=== PATIENT | female | born 1980 ===

== ENCOUNTER 2017-09-09 11:02 | Day surgery (SDC) | payer BC ==
[2017-09-03 12:26] VITALS: BMI 25.2
[2017-09-09 11:43] LABS: BASO # 0.01 K/mm3 (0.0-2.0); BASO % 0.2 % (0.0-3.0); EOS % 0.7 % (1.5-5.0); GRAN # 2.04 (1.4-6.5); GRAN % 50.5 % (50.0-68.0); HEMATOCRIT 38.6 % (36.0-48.0); LYMPH # 1.7 (1.2-3.4); LYMPH % 41.2 % (22.0-35.0); MEAN CELL VOLUME 90.8 fl (80.0-105.0); MEAN CORPUSCULAR HEMOGLOBIN 30.6 pg (25.0-35.0); MEAN CORPUSCULAR HGB CONC 33.7 g/dl (31.0-37.0); MONO # 0.3 (0.1-0.6); MONO % 7.4 % (1.0-6.0); RED CELL DISTRIBUTION WIDTH 12.4 % (11.5-14.5); WHITE BLOOD COUNT 4.1 10^3/ul (4.5-11.0)
[2017-09-09] MEDS ORDERED: Lidocaine 2% Inj (20ml) ONE (11:45)
[2017-09-09] MEDS ORDERED: Iodixanol 320 MG/ML 100 ML BOTTLE IV ONE (11:46)
[2017-09-09] MEDS ORDERED: Iodixanol 320 MG/ML 200 ML BOTTLE IV ONE (11:46)
[2017-09-09] MEDS ORDERED: Nitroglycerin 50mg in D5W 50 MG/250 ML BOTTLE IV ONE (11:47)
[2017-09-09 11:49] LABS: BLOOD UREA NITROGEN 10 mg/dL (7-21); CALCIUM 8.9 mg/dL (8.4-10.5); CARBON DIOXIDE 23 mmol/L (21-33); CHLORIDE 109 mmol/L (98-107); GFR AFRICAN-AMERICAN > 60; GLUCOSE,RANDOM 85 mg/dL (70-110); POTASSIUM 3.9 mmol/L (3.6-5.0); SODIUM 142 mmol/L (132-148)
[2017-09-09 11:52] LABS: INR 1.23 (0.93-1.08)
[2017-09-09] MEDS ORDERED: Midazolam 2 MG/2 ML VIAL ONE ×3 (11:58→13:34)
[2017-09-09] MEDS ORDERED: Naloxone 0.4 mg/ml Inj (Adult) ONE ×2 (13:34→13:58)
[2017-09-09] MEDS: HYDROmorphone 2 mg/ml ISec IVP PRN ×3 (14:32→19:11)
[2017-09-09] MEDS ORDERED: HYDROmorphone 1 mg/ml ISec IVP STA (15:14)
[2017-09-09] MEDS ORDERED: HYDROmorphone 2 mg/ml ISec ONE (15:18)
[2017-09-09] MEDS ORDERED: HYDROmorphone 2 mg/ml ISec IVP STA (15:18)
[2017-09-09] MEDS ORDERED: Pantoprazole 40 mg EC Tab PO SCH (16:00)
[2017-09-09] MEDS: Oxycodone/Acetaminophen 5/325 mg Tab PO PRN ×3 (16:10→22:15)
[2017-09-09] MEDS ORDERED: Oxycodone/Acetaminophen 5/325 mg Tab ONE (16:27)
[2017-09-09] MEDS: Sodium Chloride 0.45% 1,000 ML IV SCH (18:39)
--- NOTE | 2017-09-09 19:38 | VASCULAR ---
PROCEDURE: 1. Bilateral uterine fibroid embolization. HISTORY: Uterine fibroids. Menorrhagia. Pelvic pain. PHYSICIAN(S): Edmund Coffman M.D. TECHNIQUE: The relative risks and indications of the procedure were explained to the patient and consent obtained. The patient was hydrated prior to the procedure and the appropriate labs drawn. The patient was placed supine on the arteriogram table and the right groin prepped and draped in the usual sterile fashion. Conscious sedation and monitoring were provided throughout the procedure by a nurse. Via a right common femoral artery approach, a 5 [place] sheath was placed in the right groin. Through the sheath and over a guidewire, a 5 [place] flush catheter was placed in the abdominal aorta at the level of the renal arteries and a PA DSA abdominal and pelvic angiogram performed. 0.035 glidewire was advanced over the bifurcation placed in the left SFA. A 4 [place] glide cath was placed in the origin of the left uterine artery. A selective DSA left uterine arteriogram was performed. The catheter was advanced over a Glidewire sub selectively in the horizontal portion left uterine artery. Embolization left uterine artery was performed with 500 - 700 micron particles. One syringe was utilized. The catheter was exchanged for a Arnold 2 catheter which was placed in the origin of the right uterine artery. A selective DSA a right uterine arteriogram was performed. Using a micro catheter, the horizontal portion of the right ureter artery was selected. The right uterine artery was embolized with 1 syringe of 500-700 micron particles. Post embolization arteriograms were obtained. The sheath was removed hemostasis obtained with a Mynx device. The patient tolerated the procedure well. FINDINGS: The main renal arteries are patent. The nephrograms are symmetric. The infrarenal abdominal aorta is normal. The aortic bifurcation is patent. The common and external iliac arteries are widely patent. The uterine arteries are prominent bilaterally. They supply bilateral hypervascular small fibroids. Bilateral uterine arteries successfully embolized as described above. The end point of embolization was slow antegrade flow in the main renal arteries and pruning of the hypervascular branches. IMPRESSION: 1.Successful bilateral uterine artery embolization as described above.
[2017-09-09] MEDS: ceFAZolin 1 gm in NS 1 GM/100 ML BAG IVPB SCH (22:16)
[2017-09-10] MEDS: HYDROmorphone 2 mg/ml ISec IVP PRN (01:45)
[2017-09-10] MEDS: Sodium Chloride 0.45% 1,000 ML IV SCH ×2 (05:24→05:29)
[2017-09-10] MEDS: Oxycodone/Acetaminophen 5/325 mg Tab PO PRN (05:28)
[2017-09-10 06:34] LABS: HEMATOCRIT 35.8 % (36.0-48.0); MEAN CELL VOLUME 92.3 fl (80.0-105.0); MEAN CORPUSCULAR HEMOGLOBIN 29.9 pg (25.0-35.0); MEAN CORPUSCULAR HGB CONC 32.4 g/dl (31.0-37.0); MEAN PLATELET VOLUME 10.2 fl (7.0-11.0); RED CELL DISTRIBUTION WIDTH 12.5 % (11.5-14.5); WHITE BLOOD COUNT 7.3 10^3/ul (4.5-11.0)
[2017-09-10 06:53] LABS: BLOOD UREA NITROGEN 7 mg/dL (7-21); CALCIUM 8.2 mg/dL (8.4-10.5); CARBON DIOXIDE 24 mmol/L (21-33); CHLORIDE 106 mmol/L (98-107); GFR AFRICAN-AMERICAN > 60; GLUCOSE,RANDOM 91 mg/dL (70-110); POTASSIUM 4.4 mmol/L (3.6-5.0); SODIUM 137 mmol/L (132-148)
[2017-09-10] MEDS: ceFAZolin 1 gm in NS 1 GM/100 ML BAG IVPB SCH (09:13)
[2017-09-10 12:02] VITALS: BP 112/69; PULSE 61; RESP 16; TEMP 99.2; O2SAT 95
== END 2017-09-10 12:30 | disposition home or self-care (01) ==
LOC: SDSVAS 11:02 → 2RSO 16:34 → SDSVAS 09-10 12:30
PROVIDERS: ATTEND Radiology Vascular & Interventional Radiology
DX: D25.9 Leiomyoma of uterus, unspecified (principal)
CPT/HCPCS: 36247; 36415 ×2; 37243; 80048 ×2; 84703; 85025; 85027; 85610; 85730; 86850; 86900; 99152; 99153; C1760 ×2; C1769 ×2; C1887 ×3; C1894; J0690 ×2; J1170 ×2; J1644; J1885; J2250; J2310; J2405; J3010; J7030 ×2; Q9967